=== PATIENT | male | born 1965 | race Two or more races ===

== ENCOUNTER 2018-04-06 07:10 | Inpatient (IN) | payer OTHER ==
[~2018-04-06] VITALS: Ht 167.6 cm; Wt 95.0 kg
[2018-04-06] MEDS ORDERED: ceFAZolin 1GM/50ML 50 ML IV ONE (09:00)
[2018-04-06] MEDS ORDERED: ONDANSETRON HCL 4 MG/2 ML VIAL IV ONE (10:45)
[2018-04-06] MEDS ORDERED: MIDAZOLAM HCL 1MG/1ML-2 ML VIAL IV PRN (10:45)
[2018-04-06] MEDS ORDERED: LABETALOL HCL 5 MG/ML 4ML SYRINGE IV PRN (10:45)
[2018-04-06] MEDS ORDERED: KETOROLAC TROMETH 30 MG/ML 1ML VIAL IV ONE (10:45)
[2018-04-06] MEDS ORDERED: MORPHINE SULFATE 4 MG/ML SYR/VIAL IV PRN ×2 (10:45→14:30)
[2018-04-06] MEDS ORDERED: HYDROmorphone HCL 2 MG/ML VL IV PRN (10:45)
[2018-04-06] MEDS ORDERED: ePHEDrine SULFATE 50 MG/ML AMP IV PRN (10:45)
[2018-04-06] MEDS ORDERED: MORPHINE SULFATE 4 MG/ML SYR/VIAL IV ONE (12:00)
[2018-04-06] MEDS ORDERED: fentaNYL CITRATE 100 MCG/2 ML VL ONE (12:18)
[2018-04-06] MEDS ORDERED: MIDAZOLAM HCL 1MG/1ML-2 ML VIAL ONE (12:19)
[2018-04-06] MEDS ORDERED: MEPERIDINE HCL (50 MG/ML) 1 ML VIAL ONE (12:19)
[2018-04-06] MEDS ORDERED: DEXAMETHASONE SOD PHOS 10MG/1ML VIAL INJ ONE (12:29)
[2018-04-06] MEDS ORDERED: PROPOFOL 10 MG/ML 20 ML IV ONE (12:29)
[2018-04-06] MEDS ORDERED: ceFAZolin 1GM VL ONE ×2 (12:41)
[2018-04-06] MEDS ORDERED: BUPIVACAINE 0.25% INJ 50ML VIAL ONE (12:50)
[2018-04-06 13:00] VITALS: BP 138/85
[2018-04-06] MEDS ORDERED: NITROGLYCERIN 0.4 MG SL TAB SL PRN (14:30)
[2018-04-06] MEDS: HYDROcodone-ACET 5/325MG TAB PO PRN ×2 (16:55→20:56)
[2018-04-06 17:02] VITALS: BP 138/85
[2018-04-06 19:36] LABS: Albumin 3.5 g/dL (3.4-5.0); BUN/Creatinine Ratio 13.2; Calcium 8.3 mg/dL (8.5-10.1); Potassium 3.8 mmol/L (3.5-5.1)
[2018-04-06 19:37] LABS: Basophils # (auto) 0 uL; Basophils % (auto) 0.3 % (0.0-2.0); Eosinophils # (auto) 0 uL; Hematocrit 44.7 % (41.0-53.0); Hemoglobin 15.7 g/dL (13.5-17.5); Lymphocytes # (auto) 0.6 uL; Lymphocytes % (auto) 5.7 % (10.0-50.0); Mean Corpuscular Hemoglobin 32.7 pg (28.0-32.0); Mean Corpuscular Hgb Conc. 35.2 g/dL (32.0-36.0); Monocytes # (auto) 0.1 uL; Monocytes % (auto) 0.7 % (0.0-12.0); Neutrophils % (auto) 93.3 % (37.0-80.0); Nucleated Red Blood Cells % 0.1 %; Platelet Count (auto) 169 10^3/uL (140-450); Red Cell Distribution Width 12.9 % (11.8-14.3); White Blood Cell 9.7 10^3/uL (4.4-10.8)
[2018-04-06 19:39] LABS: Bilirubin, Total 0.5 mg/dL (0.2-1.0); Total Protein 7.2 g/dL (6.4-8.2)
[2018-04-06 20:00] VITALS: BP 116/71
[2018-04-06 21:34] VITALS: BP 116/71
[2018-04-07 04:31] VITALS: BP 113/68
[2018-04-07 08:13] VITALS: BP 120/63
[2018-04-07 09:00] VITALS: BP 120/63
[2018-04-07] MEDS ORDERED: ENOXAPARIN SOD 40 MG/0.4 ML SYRINGE SC SCH (10:00)
[2018-04-07 13:00] VITALS: BP 116/73
== END 2018-04-07 14:15 | DRG 352 ==
LOC: SUR 07:10 → EEVIPCON 07:11 → EAST 07:11 → TELE-EAST 18:48
PROVIDERS: ADMIT Surgery; ATTEND Internal Medicine
PROC: 0YQ50ZZ Repair Right Inguinal Region, Open Approach (ICD-10-PCS; principal; 2018-04-06 12:08)
DX: K40.90 Unilateral inguinal hernia, without obstruction or gangrene, not specified as recurrent (principal); R00.1 Bradycardia, unspecified
CPT/HCPCS: 36415; 80053; 84443; 85025; J0690; J1100; J2250; J2704; J3490

== ENCOUNTER 2023-10-23 21:44 | Emergency (ER) | payer OTHER ==
[~2023-10-23] VITALS: Ht 162.6 cm; Wt 62.1 kg
[2023-10-23 22:21] VITALS: BP 104/64; PULSE 89; RESP 16; TEMP 98.6; O2SAT 96
[2023-10-24] MEDS ORDERED: IBUP1TAB5 PO (00:19)
[2023-10-24] MEDS ORDERED: PRED20TA2 PO (00:19)
[2023-10-24] MEDS ORDERED: ALBUAER3 IN (00:19)
[2023-10-24] MEDS ORDERED: BENZ200C64 PO (00:19)
[2023-10-24] MEDS ORDERED: AUG875T PO (00:19)
[2023-10-24] MEDS: DexAMETHasone SOD PHOS 10MG/1ML VIAL INJ IM ONE (00:39)
[2023-10-24] MEDS: cefTRIAXone SOD 1,000 MG VL IM ONE (00:39)
== END 2023-10-24 00:45 | disposition home or self-care (01) ==
LOC: ER 21:48
DX: J03.90 Acute tonsillitis, unspecified (principal); R50.9 Fever, unspecified; J45.909 Unspecified asthma, uncomplicated
CPT/HCPCS: 96372; 99284; J0696; J1100

== ENCOUNTER 2024-01-24 21:55 | Emergency (ER) | payer OTHER ==
[~2024-01-24] VITALS: Ht 162.6 cm; Wt 60.0 kg
[2024-01-24 21:55] VITALS: BP 122/71; PULSE 57; RESP 20; O2SAT 97
[~2024-01-24 21:55] MED LIST: ALBUAER3 IN; AUG875T PO; BENZ200C64 PO; IBUP1TAB5 PO; PRED20TA2 PO
== END 2024-01-26 08:21 | disposition left against medical advice (07) ==
LOC: ER 21:55
DX: T18.128A Food in esophagus causing other injury, initial encounter (principal); Z53.21 Procedure and treatment not carried out due to patient leaving prior to being seen by health care provider; W44.F3XA Food entering into or through a natural orifice, initial encounter; Y93.89 Activity, other specified; Y92.89 Other specified places as the place of occurrence of the external cause; Y99.8 Other external cause status